=== PATIENT | male | born 1990 | race Caucasian/White ===

== ENCOUNTER 2017-02-09 | Emergency (ER) | payer MEDICAID ==
[~2017-02-09] VITALS: Ht 175.3 cm; Wt 89.8 kg
[2017-02-09 01:57] VITALS: BP 129/100
== END 2017-02-09 01:57 | disposition home or self-care (01) ==
LOC: ED
DX: L60.0 Ingrowing nail (principal)
CPT/HCPCS: J2001

== ENCOUNTER 2017-05-01 16:33 | Emergency (ER) | payer MEDICAID ==
[~2017-05-01] VITALS: Ht 172.7 cm; Wt 89.8 kg
[2017-05-01 16:53] VITALS: BP 147/84
== END 2017-05-01 17:56 | disposition home or self-care (01) ==
LOC: ED 16:33
DX: S11.91XA Laceration without foreign body of unspecified part of neck, initial encounter (principal); W26.0XXA Contact with knife, initial encounter; Y93.89 Activity, other specified; Y92.89 Other specified places as the place of occurrence of the external cause; Y99.8 Other external cause status

== ENCOUNTER 2017-06-16 09:21 | Emergency (ER) | payer MEDICAID ==
[2017-06-16 11:23] VITALS: BP 128/86
== END 2017-06-16 11:23 | disposition home or self-care (01) ==
LOC: ED 09:21
DX: S33.5XXA Sprain of ligaments of lumbar spine, initial encounter (principal); X58.XXXA Exposure to other specified factors, initial encounter; Y93.89 Activity, other specified; Y92.89 Other specified places as the place of occurrence of the external cause; Y99.8 Other external cause status
CPT/HCPCS: J1885